=== PATIENT | male | born 1980 ===

== ENCOUNTER 2021-07-11 11:37 | Emergency (ER) | payer SELFPAY ==
--- NOTE | 2021-07-11 12:25 | XRay Report ---
LEFT HAND 4 VIEW(S) INDICATION / CLINICAL INFORMATION: left hand injury COMPARISON: None available. FINDINGS: BONES / JOINT(S): Comminuted but predominantly transverse fracture through the midshaft of the middle phalanx of the long finger. There is prominent volar angulation of the distal fracture fragment. Add itionally, there is a displaced fracture fragment measuring approximately 8 mm in length along the vo lar aspect of the fracture site. No significant arthritis. SOFT TISSUES: Soft tissue swelling about the fracture site. ADDITIONAL FINDINGS: None. Signer Name: Mazin Escudero MD Signed: 07/11/2021 12:21 PM Workstation Name: [id number]
[2021-07-11] MEDS ORDERED: MORPHINE 4 MG/1 ML INJ IV ONE ×2 (12:45→15:24)
[2021-07-11] MEDS ORDERED: MORPHINE 4 MG/1 ML INJ ONE (12:50)
[2021-07-11] MEDS ORDERED: AMPICILLIN 1,000 MG in SODIUM CHLORIDE 0.9% 50 ML IV ONE (12:52)
[2021-07-11] MEDS ORDERED: AMPICILLIN/NS 1 GM/50 ML 1 GM/50 ML BAG IV ONE (12:52)
[2021-07-11] MEDS ORDERED: GENTAMICIN/NS 120MG/100ML 120 MG/100 ML BAG IV ONE (12:53)
[2021-07-11] MEDS ORDERED: TETANUS,DIPHTHERIA TOXOID ADULT 0.5 ML INJ IM ONE (12:54)
--- NOTE | 2021-07-11 13:00 | Emergency Department Report ---
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 States he was cutting a large metal pipe that fell onto his hand. He has obvious deformity to his left middle finger. - Related Data Allergies Allergy/AdvReac Type Severity Reaction Status Date / Time No Known Allergies Allergy Verified 07/11/21 11:41 ED Review of Systems ROS: Stated complaint: BROKEN RT FINGER Other details as noted in HPI Comment: All other systems reviewed and negative Constitutional: denies: chills, fever Respiratory: denies: cough, shortness of breath, wheezing Cardiovascular: denies: chest pain, palpitations Gastrointestinal: denies: abdominal pain, nausea, diarrhea Genitourinary: denies: urgency, dysuria Musculoskeletal: denies: back pain, joint swelling, arthralgia Skin: denies: rash, lesions Neurological: denies: headache, weakness, paresthesias Psychiatric: denies: anxiety, depression ED Past Medical Hx - Past Medical History Previous Medical History?: No - Surgical History Past Surgical History?: No ED Physical Exam - General Limitations: No Limitations General appearance: alert, in no apparent distress - Head Head exam: Present: atraumatic, normocephalic - Eye Eye exam: Present: normal appearance, EOMI - Respiratory Respiratory exam: Present: normal lung sounds bilaterally. Absent: respiratory distress - Cardiovascular Cardiovascular Exam: Present: regular rate, normal rhythm. Absent: systolic murmur, diastolic murmur, rubs, gallop - GI/Abdominal GI/Abdominal exam: Present: soft. Absent: distended, tenderness - Extremities Exam Extremities exam: Present: other (Angular deformity of the middle phalanx of the left middle finger with overlying laceration. There is a smaller laceration to the volar aspect of the left ring finge. No tenderness/deformity in the palmar region or wrist.) - Neurological Exam Neurological exam: Present: alert, oriented X3 - Psychiatric Psychiatric exam: Present: normal affect, normal mood - Skin Skin exam: Present: warm, dry, normal color, other (2.5 cm laceration to the volar aspect of the left middle finger) ED Course Vital Signs 07/11/21 11:41 Temperature 98.2 F Pulse Rate 71 Respiratory 16 Rate Blood Pressure 131/78 [Left] O2 Sat by Pulse 98 Oximetry ED Medical Decision Making - Medical Decision Making Patient presenting to ED with complaint of injury to his left hand. X-ray reveals comminuted angulated fracture of the left middle phalanx of the long fin eve. Patient was given IM tetanus toxoid along with IV ampicillin and gentamicin. I discussed case with Dr. Damon (hand surgeon) at [place]. Patient accepted for ER to ER transfer Critical Care Time: Yes Critical care time in (mins) excluding proc time.: 35 Critical care attestation.: If time is entered above; I have spent that time in minutes in the direct care of this critically ill patient, excluding procedure time. ED Disposition Clinical Impression: Open fracture of middle phalanx of finger of left hand Disposition: 02 [facility] Is pt being admited?: No Does the pt Need Aspirin: No Condition: Stable Time of Disposition: 13:10
[2021-07-11 17:51] VITALS: BP 121/68
== END 2021-07-11 17:49 | disposition short-term general hospital (02) ==
LOC: ED 11:37
DX: S62.603B Fracture of unspecified phalanx of left middle finger, initial encounter for open fracture (principal); W25.XXXA Contact with sharp glass, initial encounter; Y93.89 Activity, other specified; Y92.89 Other specified places as the place of occurrence of the external cause; Y99.8 Other external cause status
CPT/HCPCS: 73130; 82962; 90471; 90714; 96365; 96375; 96376; 99291; J0290; J1580; J2270; 99285